=== PATIENT | male | born 1960 | race Caucasian/White ===

== ENCOUNTER 2018-06-15 12:57 | Outpatient (CLI) | payer BC, OTHER ==
[2018-06-15 14:12] LABS: ALBUMIN 4.2 g/dL (3.4-5.0); ANION GAP 7 mmol/L (5-15); CHLORIDE 108 mmol/L (98-107); INTERNATIONAL NORMALIZED RATIO 1.35 (0.93-1.1)
[2018-06-15 14:16] LABS: ALANINE AMINOTRANSFERASE 28 U/L (12-78); ALKALINE PHOSPHATASE 89 U/L (45-117); BILIRUBIN,TOTAL 0.7 mg/dL (0.2-1.0); CREATININE 0.94 mg/dL (0.7-1.3); TOTAL PROTEIN 7.6 g/dL (6.4-8.2)
[2018-06-15] MEDS ORDERED: POTA20TA14 PO (14:16)
[2018-06-15] MEDS ORDERED: DILT360C26 PO (14:16)
[2018-06-15] MEDS ORDERED: ATOR40TA78 PO (14:16)
[2018-06-15] MEDS ORDERED: FURO20TA3 PO (14:16)
[2018-06-15] MEDS ORDERED: METO2.5T PO (14:16)
[2018-06-15] MEDS ORDERED: IBUP200T49 PO (14:16)
[2018-06-15] MEDS ORDERED: METO25TA35 PO (14:16)
[2018-06-15] MEDS ORDERED: LISI-170 PO (14:16)
[2018-06-15] MEDS ORDERED: RIVA20TA PO (14:16)
[2018-06-15 14:24] LABS: BASOPHILS # (AUTO) 0.04 x10^3/uL (0-0.1); BASOPHILS % (AUTO) 0 % (0-1); EOSINOPHILS # (AUTO) 0.13 x10^3/uL (0-0.4); EOSINOPHILS % (AUTO) 1 % (1-7); LYMPHOCYTES # (AUTO) 1.63 x10^3/uL (1-3.4); LYMPHOCYTES % (AUTO) 15 % (22-44); MD NO; MEAN CORPUSCULAR HEMOGLOBIN 34.2 pg (27.5-34.5); MEAN CORPUSCULAR HGB CONC 33.3 g/dL (33.2-36.2); MEAN CORPUSCULAR VOLUME 102.8 fL (81-97); MEAN PLATELET VOLUME 8.7 fL (7.4-10.4); MONOCYTES % (AUTO) 7 % (2-9); NEUTROPHILS % (AUTO) 77 % (42-75); PLATELET COUNT 244 x10^3/uL (130-400); RED BLOOD COUNT 4.61 x10^6/uL (4.38-5.82); RED CELL DISTRIBUTION WIDTH 13.7 % (9.4-14.8)
== END 2018-06-15 23:59 | disposition home or self-care (01) ==
LOC: STAR 12:57
PROVIDERS: ATTEND Internal Medicine Cardiovascular Disease
DX: I48.91 Unspecified atrial fibrillation (principal)
CPT/HCPCS: 36415; 80053; 85025; 85610; 85730

== ENCOUNTER → 2018-06-15 | Outpatient (CLI) | payer BC, OTHER ==
[~2018-06-15] MED LIST: ATOR40TA78 PO; DILT360C26 PO; FURO20TA3 PO; IBUP200T49 PO; LISI-170 PO; METO2.5T PO; METO25TA35 PO; OMNIPAQUE 350 MG/ML, 150 ML BOTTLE ONE; POTA20TA14 PO; RIVA20TA PO
== END | disposition home or self-care (01) ==
LOC: CFH 11:38
PROVIDERS: ATTEND Internal Medicine Cardiovascular Disease
DX: I48.91 Unspecified atrial fibrillation (principal); I51.7 Cardiomegaly
CPT/HCPCS: 71046; 75572; 82565; Q9967

== ENCOUNTER 2018-06-21 06:33 | Inpatient (IN) | payer BC, OTHER ==
[2018-06-15 13:59] VITALS: BP 131/73
[~2018-06-21] VITALS: Ht 170.2 cm; Wt 113.1 kg
[~2018-06-21 06:33] MED LIST changes: +DEXAMETHASONE 4 MG/ML, 1ML ONE; +HEPARIN 1,000 UNITS/ML, 30ML ONE; -OMNIPAQUE 350 MG/ML, 150 ML BOTTLE ONE; +ONDANSETRON 2MG/ML, 2ML ONE; +PROPOFOL 10 MG/ML, 20ML ONE; +ROCURONIUM 10 MG/ML,10ML ONE; +SUCCINYLCHOLINE 20 MG/ML, 10ML ONE
[2018-06-21] MEDS ORDERED: SODIUM CHLORIDE 0.9% 1,000 ML IV SCH (06:44)
[2018-06-21] MEDS ORDERED: SODIUM CHLORIDE 0.9% 1,000 ML IV ONE (07:00)
[2018-06-21] MEDS ORDERED: MIDAZOLAM 1 MG/ML, 2ML ONE (07:35)
[2018-06-21] MEDS ORDERED: FENTANYL PF 250 MCG/5ML ONE (07:35)
[2018-06-21] MEDS ORDERED: PROPOFOL 50 ML ONE (07:35)
[2018-06-21] MEDS ORDERED: LIDOCAINE 1%, 20ML ONE (10:26)
[2018-06-21] MEDS ORDERED: IBUPROFEN 200 MG TABLET PO PRN (14:00)
[2018-06-21] MEDS ORDERED: METOLAZONE 2.5 MG TABLET PO PRN (14:00)
[2018-06-21] MEDS ORDERED: FUROSEMIDE 20 MG TABLET PO PRN (14:00)
[2018-06-21] MEDS ORDERED: OXYcodone 5 MG/5 ML ORAL.SOL UDC ONE (14:25)
[2018-06-21] MEDS ORDERED: OXYcodone 5 MG/5 ML ORAL.SOL UDC PO PRN (14:30)
[2018-06-21] MEDS ORDERED: PROMETHAZINE 25 MG SUPP PR PRN (14:30)
[2018-06-21] MEDS ORDERED: PROMETHAZINE 25 MG/ML, 1ML IV PRN (14:30)
[2018-06-21] MEDS ORDERED: MEPERIDINE/PF 25MG/0.5ML IVPush PRN (14:30)
[2018-06-21] MEDS ORDERED: hydrALAzine 20 MG/ML, 1ML IV PRN (14:30)
[2018-06-21] MEDS ORDERED: FENTANYL PF 100 MCG/2ML IV PRN (14:30)
[2018-06-21] MEDS ORDERED: PROMETHAZINE 12.5 MG SUPP PR PRN (14:30)
[2018-06-21] MEDS ORDERED: ONDANSETRON ODT 8 MG PO PRN (14:30)
[2018-06-21] MEDS ORDERED: MORPHINE SULFATE 4 MG/ML, 1ML IVPush PRN (14:30)
[2018-06-21] MEDS ORDERED: ONDANSETRON 2MG/ML, 2ML IV PRN (14:30)
[2018-06-21] MEDS ORDERED: METOPROLOL 1 MG/ML, 5ML IV PRN (14:30)
[2018-06-21] MEDS ORDERED: EPHEDRINE 50 MG/ML, 1ML IVPush PRN (14:30)
[2018-06-21] MEDS ORDERED: MIDAZOLAM 1 MG/ML, 2ML IV PRN (14:30)
[2018-06-21] MEDS ORDERED: DIAZEPAM 5 MG/ML, 2ML IVPush PRN (14:30)
[2018-06-21] MEDS ORDERED: DIPHENHYDRAMINE 50 MG/ML, 1ML IVPush PRN (14:30)
[2018-06-21] MEDS ORDERED: ACETAMINOPHEN 325 MG TABLET PO PRN (14:30)
[2018-06-21] MEDS ORDERED: EPHEDRINE 50 MG/ML, 1ML IM PRN (14:30)
[2018-06-21] MEDS: RIVAROXABAN 20 MG TABLET PO SCH (14:58)
[2018-06-21 15:30] VITALS: BP 103/68
[2018-06-21] MEDS: SOTALOL 80MG TABLET PO SCH (18:00)
[2018-06-21 19:59] VITALS: BP 105/77
[2018-06-21] MEDS: ATORVASTATIN 40 MG TABLET PO SCH (20:48)
[2018-06-22 00:25] VITALS: BP 128/86
[2018-06-22] MEDS: SOTALOL 80MG TABLET PO SCH (05:53)
[2018-06-22] MEDS ORDERED: RIVAROXABAN 20 MG TABLET PO SCH (07:00)
[2018-06-22 07:34] VITALS: BP 134/89
[2018-06-22] MEDS: LISINOPRIL 20 MG TABLET PO SCH (07:52)
[2018-06-22] MEDS: POTASSIUM CHLORIDE 20 MEQ TAB.ER.PRT PO SCH (07:52)
[2018-06-22] MEDS: RIVAROXABAN 20 MG TABLET PO SCH (07:53)
[2018-06-22] MEDS ORDERED: DILTIAZEM CD 180 MG CAP.ER.24H PO SCH (09:00)
[2018-06-22 12:40] VITALS: BP 117/77
[2018-06-22 14:04] VITALS: BP 116/79
[2018-06-22] MEDS ORDERED: morphine SULFATE 10 MG/ML, 1ML IVPush ONE (15:00)
[2018-06-22] MEDS: SOTALOL 120MG TABLET PO SCH (17:00)
[2018-06-22 18:58] VITALS: BP 116/80
[2018-06-22] MEDS: ATORVASTATIN 40 MG TABLET PO SCH (19:39)
[2018-06-23 00:43] VITALS: BP 115/83
[2018-06-23] MEDS: SOTALOL 120MG TABLET PO SCH (05:53)
[2018-06-23 06:46] VITALS: BP_SYST 131; BP_SYST 144; BP_DIAS 102; BP_DIAS 107
[2018-06-23 07:00] VITALS: BP 134/91
[2018-06-23] MEDS ORDERED: AMLODIPINE 5 MG TABLET PO ONE (08:30)
[2018-06-23] MEDS ORDERED: FUROSEMIDE 20 MG/2 ML ONE (08:33)
[2018-06-23] MEDS: LISINOPRIL 20 MG TABLET PO SCH (08:36)
[2018-06-23] MEDS: POTASSIUM CHLORIDE 20 MEQ TAB.ER.PRT PO SCH (08:36)
[2018-06-23] MEDS: RIVAROXABAN 20 MG TABLET PO SCH (08:36)
[2018-06-23] MEDS ORDERED: FUROSEMIDE 20 MG/2 ML IV ONE (09:00)
[2018-06-23] MEDS ORDERED: DILTIAZEM CD 180 MG CAP.ER.24H PO SCH (09:00)
[2018-06-23 10:04] VITALS: BP 120/83
[2018-06-23] MEDS ORDERED: SOTA120T14 PO (11:16)
[2018-06-23] MEDS ORDERED: FURO20TA3 PO (11:16)
[2018-06-23] MEDS ORDERED: DILT180C53 PO (11:16)
== END 2018-06-23 12:51 | disposition home or self-care (01) | DRG 273 ==
LOC: CACL 06:33 → INTOOBSV 13:53 → ORIP 13:53 → 5SO 15:29 → OBSVTOIN 06-22 14:00 → UNDODISIN 06-23 12:39 → DCLOUNGE 06-23 12:48
PROVIDERS: ADMIT Internal Medicine Cardiovascular Disease; ATTEND Internal Medicine Cardiovascular Disease
PROC: 02583ZZ Destruction of Conduction Mechanism, Percutaneous Approach (ICD-10-PCS; 2018-06-21)
PROC: 4A0234Z Measurement of Cardiac Electrical Activity, Percutaneous Approach (ICD-10-PCS; 2018-06-21)
PROC: 02K83ZZ Map Conduction Mechanism, Percutaneous Approach (ICD-10-PCS; 2018-06-21)
PROC: 4A023FZ Measurement of Cardiac Rhythm, Percutaneous Approach (ICD-10-PCS; principal; 2018-06-21 08:00)
DX: I48.92 Unspecified atrial flutter (principal); I50.33 Acute on chronic diastolic (congestive) heart failure; D68.69 Other thrombophilia; I31.3 Pericardial effusion (noninflammatory); I48.91 Unspecified atrial fibrillation; E66.9 Obesity, unspecified; I11.0 Hypertensive heart disease with heart failure; Z79.01 Long term (current) use of anticoagulants; Z87.891 Personal history of nicotine dependence; Z68.39 Body mass index [BMI] 39.0-39.9, adult
CPT/HCPCS: 93613; 93655; 93656; 93657; 93662; J3490; 71045; 85347; 93005; 93306; 93312; 93321; 93325; C1732; C1766; C1893; C1894; G0378; J1100; J1644; J2250; J2405; J2704; J3010; C1730; C1759; J0330; J1940; J2270